=== PATIENT | male | born 1955 | race Caucasian/White ===

== ENCOUNTER → 2023-05-12 08:39 | Outpatient (BNVA) | payer MEDICARE, SELFPAY | PROVIDERS: PCP Internal Medicine; Referring Provider Internal Medicine; Visit Provider Surgery | DX: Z12.11 Encounter for screening for malignant neoplasm of colon (principal) ==

== ENCOUNTER 2023-05-14 10:53 | Day surgery (SDC) | payer MEDICARE, SELFPAY ==
--- NOTE | 2023-05-13 22:03 | W.PM.DSUDISC ---
Date of service: 05/14/23 Time of Service: 14:05 Discharge Plan Disposition Patient Disposition: Home Condition: Good Discharge Details Reason For Visit: Colonoscopy Attending Provider: Xavier Ngo Primary Care Provider: Regina Dueñas Home Meds and New Rx's Prescriptions: Continued levothyroxine 75 mcg capsule 75 mcg PO DAILY metoprolol succinate 50 mg tablet extended release 24 hr 50 mg PO DAILY atorvastatin 40 mg tablet 40 mg PO DAILY ferrous sulfate [FeroSul] 325 mg (65 mg iron) tablet 325 mg PO DAILY tamsulosin 0.4 mg capsule 0.4 mg PO DAILY losartan 100 mg tablet 100 mg PO DAILY ezetimibe [Zetia] 10 mg tablet 10 mg PO DAILY pantoprazole 40 mg tablet,delayed release (DR/EC) 40 mg PO DAILY magnesium 250 mg tablet 250 mg PO DAILY Bioflex 137-38-49-40 mg tablet PO aspirin 81 mg tablet,delayed release (DR/EC) 81 mg PO DAILY vitamin E (dl, acetate) 180 mg (400 unit) capsule 180 mg PO DAILY multivitamin Tablet 1 tab PO DAILY Discontinued polyethylene glycol 3350 17 gram/dose powder 238 g PO ONCE Qty: 238 0RF Rx Instructions: take per colonoscopy instructions bisacodyl [Dulcolax (bisacodyl)] 5 mg tablet,delayed release (DR/EC) 5 mg PO ONCE Qty: 4 0RF Rx Instructions: take per colonoscopy instructions Discharge Instructions Instructions: Diverticulosis (GEN), Diverticulosis Diet (GEN) Additional Instructions: Sunny, we were able to complete your colonoscopy today without any problems. You have some mild diverticulosis. Diverticula are weak spots in the colon wall that most patients accumulate with age. It is extremely common. I have attached some general information here regarding diverticulosis and its management. Otherwise, I did not see any signs of polyps, tumors, or anything worrisome. You should consider another colonoscopy in 10 years to minimize your chances of dying from colon cancer over the course of your lifetime. 1. If tolerated, consume a soft, low fiber diet for 1-2 days. 2[address] Do not drive, drink alcohol, operate machinery, make critical decisions, or do activities that require coordination or balance for 24 hours. 3. Because air was put into your colon during the procedure, expelling air from your rectum (passing gas or farting) is normal. 4. You may not have a bowel movement for 1-3 days because of the colonoscopy prep. This is normal. 5. Go directly to the emergency room if you notice any of the following: Develop chills (warm to touch), or if you have a thermometer and your temperature is above 101 Difficulty breathing or difficultly swallowing Persistent vomiting Severe abdominal pain, other than gas cramps Severe chest pain Black, tarry stools Any bleeding ? exceeding one tablespoon 6. Call your physician if the site where your intravenous was started becomes red, swollen, painful, and warm to touch. 7. Your physician has reviewed your pre-procedure medications. Please continue to take those medications as previously ordered. You will be given specific information/education regarding any changes to your medications before leaving. Activity:: Activity as Tolerated Diet:: As Tolerated Discharge Orders Discharge Orders: Discharge Order (Routine); Ordered 05/13/23 Ordered By: Xavier Ngo DS: Diagnosis Discharge Diagnosis (1) Screen for colon cancer: Status: Acute Asessment and Plan: Negative screening colonoscopy; consider another one in 10 years
--- NOTE | 2023-05-13 22:05 | COLE_ITS ---
Date of service: 05/14/23 Time of Service: 14:06 Colonoscopy Report Date of procedure: 05/14/23 Pre-op diagnosis general: Screening colonoscopy Post-op diagnosis procedure note: other (Diverticulosis) Procedure: Colonoscopy Surgeon: Xavier Ngo Anesthesia Type: General:No Airway Estimated blood loss (mL): 0 Pathology: none sent Complications: None Disposition: same day Indications: Sunny is a 68-year-old male who needs another screening colonoscopy Prep: Miralax/Dulcolax Procedure Start Time: 13:38 Procedure End Time: 13:56 Retraction Time: 11 Findings: sigmoid diverticulosis Procedure Description: After the induction of monitored anesthetic care, and with the patient in left lateral decubitus position, I began by performing an external anorectal exam.? Perineum and skin were normal, as was the anal verge.? There was no evidence of external hemorrhoids.? Next, I performed a digital rectal exam.? I did not appreciate any abnormal findings.? Next, I advanced a colonoscope into the rectal vault.? I performed retroflexion.? This appeared normal.? Using insufflation, I then advanced the colonoscope beyond the rectal folds and into the sigmoid colon before advancing towards the cecum.? The quality of the prep w as excellent.? There was some sigmoid diverticulosis. The scope was noted to be in the cecum by identification of the ileocecal valve and appendiceal orifice.? I then began withdrawing the colonoscope using repeated irrigation as necessary for full evaluation of the colonic mucosa. ?Once the scope was withdrawn to the level of the rectum, great care was taken to examine portions of the rectal fol ds.? Finally, the scope was withdrawn and the patient was brought to the same- day surgery recovery unit as the anesthetic wore off. ?The findings and instructions were shared with the patient prior to discharge.
[2023-05-14 10:56] VITALS: BP 112/71; PULSE 87; RESP 18; TEMP 36.2; O2SAT 96
[2023-05-14] MEDS: Lactated Ringers 1,000 ML 80 ML IV (11:34)
--- NOTE | 2023-05-14 12:00 | W.ANESPRE ---
General Info Date of Service Date Performed: 05/14/23 Height: 6 ft Weight: 94.6 kg Body Mass Index (BMI): 28.3 Surgical Procedure: Operation Date: 05/14/23 12:50 Proposed Procedure Side Surgeon erinn Ngo MD Meds Allergies and Home Medications Allergies Allergy/AdvReac Type Severity Reaction Status Date / Time No Known Drug Allergies Allergy Unknown Verified 05/14/23 11:06 Home Medication Medication Instructions Recorded aspirin 81 mg tablet,delayed 81 mg PO DAILY 05/12/23 release atorvastatin 40 mg tablet 40 mg PO DAILY 05/12/23 ezetimibe 10 mg tablet (Zetia) 10 mg PO DAILY 05/12/23 ferrous sulfate 325 mg (65 mg 325 mg PO DAILY 05/12/23 iron) tablet (FeroSul) levothyroxine 75 mcg capsule 75 mcg PO DAILY 05/12/23 losartan 100 mg tablet 100 mg PO DAILY 05/12/23 magnesium 250 mg tablet 250 mg PO DAILY 05/12/23 metoprolol succinate 50 mg 50 mg PO DAILY 05/12/23 tablet,extended release 24 hr multivitamin 1 tab PO DAILY 05/12/23 pantoprazole 40 mg tablet,delayed 40 mg PO DAILY 05/12/23 release tamsulosin 0.4 mg capsule 0.4 mg PO DAILY 05/12/23 vit tab PO 05/12/23 H-[id number]-[id number] 500 mg-50 mg-25 mg-40 mg tablet (Bioflex) vitamin E (dl, acetate) 180 mg 180 mg PO DAILY 05/12/23 (400 unit) capsule Current Visit Medications: Current Medications Generic Name Dose Route Start Last Admin Trade Name Suzanne PRN Reason Stop Dose Admin Hyoscyamine Sulfate 0.125 mg 05/13/23 22:06 Hyoscyamine 0.125 Mg Sl/Oral/Chew SL 06/12/23 22:05 DIRECTED PRN Ringer's Solution 1,000 mls @ 80 mls/hr 05/14/23 06:00 05/14/23 11:34 IV 06/12/23 23:59 80 mls/hr INFUSION REX Administration IV Miscellaneous Supplies 1 each 05/14/23 06:00 Iv Access IV 06/12/23 23:59 DIRECTED REX Ondansetron HCl 4 mg 05/13/23 22:06 Ondansetron 4 Mg/2 Ml Vial IVP 06/12/23 22:05 Q4H PRN PRN Nausea / Vomiting Sodium Chloride 0 ml 05/14/23 06:00 Normal Saline Flush 10 Ml Syr IV 06/12/23 23:59 PRN PRN Sodium Chloride 0 ml 05/14/23 06:00 Normal Saline 10 Ml Vial IJ 06/12/23 23:59 DIRECTED PRN Sterile Water 0 ml 05/14/23 06:00 Water,Injection,Sterile 10 Ml Vial IJ 06/12/23 23:59 DIRECTED PRN PFSH Active Problems Active Problems: Problem Status Onset Code Screen for colon cancer Z12.11 Cardiovascular disease I25.10 GERD (gastroesophageal reflux disease) K21.9 Medical History Medical History BPH (benign prostatic hyperplasia) Essential hypertension Heart disease History of heart attack Hyperlipidemia Hypothyroidism Periodic limb movement disorder Surgical History Surgical History History of heart artery stent 2 stents- followed by Dr. Mendez S/P colonoscopy (~2010) [place] Tobacco Smoking/Tobacco Use Status: Never Alcohol Alcohol Intake: current Alcohol intake frequency: a few times a week Alcohol type: beer Substance Use Substance use: Never Substance use type: does not use Vital Signs and Lab Results Vital Signs Most Recent Vital Signs in EMR: Most Recent Vital Signs Temp Pulse Resp BP Pulse Ox 36.2 C L 87 18 112/71 96 05/14/23 10:56 05/14/23 10:56 05/14/23 10:56 05/14/23 10:56 05/14/23 10:56 Lab Results Blood Type / Crossmatch: No Data to Display Complete Blood Count: No Data to Display Complete Metabolic Panel: No Data to Display Liver Function Panel: No Data to Display Coagulation Panel: No Data to Display Cardiac Panel: No Data to Display Arterial Blood Gas: No Data to Display Venous Blood Gas: No Data to Display Pancreas Panel: No Data to Display Thyroid Panel: No Data to Display Infectious Disease: No Data to Display Blood Cultures: No Data to Display Toxicology Panel: No Data to Display Anesthesia Assessment and Plan Anesthesia History Personal History: No History of Anesthesia Complications Family History: No Family History of Anesthesia Complications Exercise Tolerance Exercise Tolerance: Metabolic Equivalents>4 Cardiac & Pulmonary Exam Cardiac Exam: Normal S1/S2 Heart Sounds Pulmonary Exam: Clear Bilateral Breath Sounds Implantable Cardiac Device Does patient have a Pacemaker or an ICD?: No Airway Exam Known Difficult Airway: No Mallampati Class: 1 Mouth Opening: Normal (> 3cm) Thyromental Distance: Greater than 3 cm Neck Range of Motion: Full ROM Neck Circumference: Normal Teeth Condition: Normal Dentition ASA Classification ASA Score: ASA 3 Emergency Case?: No NPO Status NPO Status: NPO Clears >2 hours, Solids >8 hours Anesthesia Plan Resuscitation Status: Full Code Anesthesia Technique: General Anesthesia Airway Planned: Natural Airway Monitors Used: Standard Monitors Preoperative Comments:: 68 yo male for colo. Sig PMHx: CAD (stents x 2, 3 years ago), HTN, hypothyroid, never smoker, occ EtOH.
[2023-05-14 12:04] VITALS: BMI 28.3
--- NOTE | 2023-05-14 12:08 | W.ANESPRE ---
General Info Date of Service Date Performed: 05/14/23 Height: 6 ft Weight: 94.6 kg Body Mass Index (BMI): 28.3 Surgical Procedure: Operation Date: 05/14/23 12:50 Proposed Procedure Side Surgeon erinn Ngo MD Meds Allergies and Home Medications Allergies Allergy/AdvReac Type Severity Reaction Status Date / Time No Known Drug Allergies Allergy Unknown Verified 05/14/23 11:06 Home Medication Medication Instructions Recorded aspirin 81 mg tablet,delayed 81 mg PO DAILY 05/12/23 release atorvastatin 40 mg tablet 40 mg PO DAILY 05/12/23 ezetimibe 10 mg tablet (Zetia) 10 mg PO DAILY 05/12/23 ferrous sulfate 325 mg (65 mg 325 mg PO DAILY 05/12/23 iron) tablet (FeroSul) levothyroxine 75 mcg capsule 75 mcg PO DAILY 05/12/23 losartan 100 mg tablet 100 mg PO DAILY 05/12/23 magnesium 250 mg tablet 250 mg PO DAILY 05/12/23 metoprolol succinate 50 mg 50 mg PO DAILY 05/12/23 tablet,extended release 24 hr multivitamin 1 tab PO DAILY 05/12/23 pantoprazole 40 mg tablet,delayed 40 mg PO DAILY 05/12/23 release tamsulosin 0.4 mg capsule 0.4 mg PO DAILY 05/12/23 vit tab PO 05/12/23 E-oiqaxsc-wovgnfqgx-rutin-[id number] 500 mg-50 mg-25 mg-40 mg tablet (Bioflex) vitamin E (dl, acetate) 180 mg 180 mg PO DAILY 05/12/23 (400 unit) capsule Current Visit Medications: Current Medications Generic Name Dose Route Start Last Admin Trade Name Suzanne PRN Reason Stop Dose Admin Hyoscyamine Sulfate 0.125 mg 05/13/23 22:06 Hyoscyamine 0.125 Mg Sl/Oral/Chew SL 06/12/23 22:05 DIRECTED PRN Ringer's Solution 1,000 mls @ 80 mls/hr 05/14/23 06:00 05/14/23 11:34 IV 06/12/23 23:59 80 mls/hr INFUSION REX Administration IV Miscellaneous Supplies 1 each 05/14/23 06:00 Iv Access IV 06/12/23 23:59 DIRECTED REX Ondansetron HCl 4 mg 05/13/23 22:06 Ondansetron 4 Mg/2 Ml Vial IVP 06/12/23 22:05 Q4H PRN PRN Nausea / Vomiting Sodium Chloride 0 ml 05/14/23 06:00 Normal Saline Flush 10 Ml Syr IV 06/12/23 23:59 PRN PRN Sodium Chloride 0 ml 05/14/23 06:00 Normal Saline 10 Ml Vial IJ 06/12/23 23:59 DIRECTED PRN Sterile Water 0 ml 05/14/23 06:00 Water,Injection,Sterile 10 Ml Vial IJ 06/12/23 23:59 DIRECTED PRN PFSH Active Problems Active Problems: Problem Status Onset Code Screen for colon cancer Z12.11 Cardiovascular disease I25.10 GERD (gastroesophageal reflux disease) K21.9 Medical History Medical History BPH (benign prostatic hyperplasia) Essential hypertension Heart disease History of heart attack Hyperlipidemia Hypothyroidism Periodic limb movement disorder Surgical History Surgical History History of heart artery stent 2 stents- followed by Dr. Mendez S/P colonoscopy (~2010) [place] Tobacco Smoking/Tobacco Use Status: Never Alcohol Alcohol Intake: current Alcohol intake frequency: a few times a week Alcohol type: beer Substance Use Substance use: Never Substance use type: does not use Vital Signs and Lab Results Vital Signs Most Recent Vital Signs in EMR: Most Recent Vital Signs Temp Pulse Resp BP Pulse Ox 36.2 C L 87 18 112/71 96 05/14/23 10:56 05/14/23 10:56 05/14/23 10:56 05/14/23 10:56 05/14/23 10:56 Lab Results Blood Type / Crossmatch: No Data to Display Complete Blood Count: No Data to Display Complete Metabolic Panel: No Data to Display Liver Function Panel: No Data to Display Coagulation Panel: No Data to Display Cardiac Panel: No Data to Display Arterial Blood Gas: No Data to Display Venous Blood Gas: No Data to Display Pancreas Panel: No Data to Display Thyroid Panel: No Data to Display Infectious Disease: No Data to Display Blood Cultures: No Data to Display Toxicology Panel: No Data to Display Anesthesia Assessment and Plan Anesthesia History Personal History: No History of Anesthesia Complications Family History: No Family History of Anesthesia Complications Implantable Cardiac Device Does patient have a Pacemaker or an ICD?: No Airway Exam Known Difficult Airway: No ASA Classification Emergency Case?: No NPO Status NPO Status: NPO Clears >2 hours, Solids >8 hours Anesthesia Plan Resuscitation Status: Full Code Anesthesia Technique: General Anesthesia Airway Planned: Natural Airway Monitors Used: Standard Monitors
[2023-05-14 14:07] VITALS: BP 110/67; PULSE 81; RESP 18; TEMP 36.6; O2SAT 95
--- NOTE | 2023-05-14 14:16 | W.ANESPOSTOP ---
Postoperative Evaluation Date, Time and Location Date Performed: 05/14/23 Time Performed: 14:16 Patient Location: Day Surgery Unit Vital Signs Most Recent Imported Vital Signs: Most Recent Vital Signs Temp Pulse Resp BP Pulse Ox 36.6 C 81 18 110/67 95 05/14/23 14:07 05/14/23 14:07 05/14/23 14:07 05/14/23 14:07 05/14/23 14:07 Pain Score Most Recent Pain Score: Most Recent Pain Score Pain Level 0 05/14/23 14:07 Assessment Mental Status: Awake (Alert & Oriented to Patient Baseline) Airway and Respiratory Function: Patent airway with normal (patient baseline) respiratory exam Cardiovascular Function: Hemodynamically Stable Hydration Status: Adequately Hydrated Nausea & Vomiting: No Nausea or Vomiting Pain: Pt. Denies Any Pain Peripheral Nerve Block: Patient did not receive a nerve block
[2023-05-14 14:29] VITALS: BP 134/92; PULSE 85; RESP 18; TEMP 36.6; O2SAT 99
== END 2023-05-14 14:39 | disposition home or self-care (01) ==
PROVIDERS: PCP Internal Medicine; Visit Provider Surgery
PROC: 0DJD8ZZ Inspection of Lower Intestinal Tract, Via Natural or Artificial Opening Endoscopic (ICD-10-PCS; CPT 45378; principal; 2023-05-14 12:45)
DX: Z12.11 Encounter for screening for malignant neoplasm of colon (principal); K57.30 Diverticulosis of large intestine without perforation or abscess without bleeding; I10 Essential (primary) hypertension; E78.5 Hyperlipidemia, unspecified
CPT/HCPCS: G0121

== ENCOUNTER → 2024-08-15 15:02 | Outpatient (BNVA) | payer MEDICARE, SELFPAY | PROVIDERS: PCP Internal Medicine; Referring Provider Internal Medicine; Visit Provider Surgery | DX: K21.9 Gastro-esophageal reflux disease without esophagitis (principal) | CPT/HCPCS: 99214 ==

== ENCOUNTER 2024-08-26 09:05 | Day surgery (SDC) | payer MEDICARE, SELFPAY ==
[2024-08-26] VITALS (15 sets, daily range): BP systolic 88–134; BP diastolic 65–91; PULSE 60–71; RESP 9–18; TEMP 36.4–36.6; O2SAT 96–99; BMI 29.2
--- NOTE | 2024-08-26 10:07 | W.ANESPRE ---
General Info Date of Service Date Performed: 08/26/24 Height: 6 ft Weight: 97.8 kg Body Mass Index (BMI): 29.2 Surgical Procedure: Operation Date: 08/26/24 09:50 Proposed Procedure Side Surgeon p Gastroscopy Dinora Gibson DO Meds Allergies and Home Medications Allergies Allergy/AdvReac Type Severity Reaction Status Date / Time No Known Drug Allergies Allergy Unknown Other (See Verified 08/26/24 09:50 Comment) Home Medication ?Medication ?Instructions ?Recorded aspirin 81 mg tablet,delayed 81 mg PO DAILY 05/12/23 release atorvastatin 40 mg tablet 40 mg PO DAILY 05/12/23 ezetimibe 10 mg tablet (Zetia) 10 mg PO DAILY 05/12/23 ferrous sulfate 325 mg (65 mg 325 mg PO DAILY 05/12/23 iron) tablet (FeroSul) levothyroxine 75 mcg capsule 75 mcg PO DAILY 05/12/23 losartan 100 mg tablet 100 mg PO DAILY 05/12/23 magnesium 250 mg tablet 250 mg PO DAILY 05/12/23 multivitamin 1 tab PO DAILY 05/12/23 pantoprazole 40 mg tablet,delayed 40 mg PO DAILY 05/12/23 release tamsulosin 0.4 mg capsule 0.4 mg PO DAILY 05/12/23 vit 1 tab PO DAILY 05/12/23 O-iilphyp-mhvfhnjkk-rutin-[id number] 500 mg-50 mg-25 mg-40 mg tablet (Bioflex) vitamin E (dl, acetate) 180 mg 180 mg PO DAILY 05/12/23 (400 unit) capsule bisoprolol fumarate 5 mg tablet 2.5 mg PO DAILY 08/15/24 Current Visit Medications: Current Medications Generic Name Dose Route Start Last Admin Trade Name Freq PRN Reason Stop Dose Admin Hyoscyamine Sulfate 0.125 mg 08/26/24 00:01 Hyoscyamine 0.125 Mg Sl/Oral/Chew SL 09/25/24 00:00 DIRECTED PRN Sodium Chloride 1,000 mls @ 30 mls/hr 08/26/24 09:40 Saline 1000ml Bag IV 09/25/24 09:39 INFUSION REX IV Miscellaneous Supplies 1 each 08/26/24 06:00 Iv Access IV 09/24/24 23:59 DIRECTED REX Ondansetron HCl 4 mg 08/26/24 00:01 Ondansetron 4 Mg/2 Ml Vial IVP 09/25/24 00:00 Q4H PRN PRN Nausea / Vomiting Sodium Chloride 0 ml 08/26/24 06:00 Normal Saline Flush 10 Ml Syr IV 09/24/24 23:59 PRN PRN Sodium Chloride 0 ml 08/26/24 06:00 Normal Saline 10 Ml Vial IJ 09/24/24 23:59 DIRECTED PRN Sterile Water 0 ml 08/26/24 06:00 Water,Injection,Sterile 10 Ml Vial IJ 09/24/24 23:59 DIRECTED PRN PFSH Active Problems Active Problems: Problem Status Onset Code Screen for colon cancer Acute Z12.11 Cardiovascular disease Acute I25.10 GERD (gastroesophageal reflux disease) Chronic K21.9 Medical History Medical History Hyperlipidemia Hypothyroidism History of heart attack 2020 Periodic limb movement disorder Essential hypertension Heart disease BPH (benign prostatic hyperplasia) Surgical History Surgical History Hx of total shoulder replacement S/P colonoscopy (~05/14/23) [place] 2010 History of heart artery stent 2 stents- followed by Dr. Mendez. F/U 03/2024 Tobacco Smoking/Tobacco Use Status: Never Alcohol Alcohol Intake: current Alcohol intake frequency: a few times a week Alcohol type: beer Substance Use Substance use: Never Substance use type: does not use Details: alcohol: t-3, one beer Vital Signs and Lab Results Vital Signs Most Recent Vital Signs in EMR: Most Recent Vital Signs Temp Pulse Resp BP Pulse Ox 36.5 C 71 16 134/86 99 08/26/24 09:37 08/26/24 09:37 08/26/24 09:37 08/26/24 09:37 08/26/24 09:37 Lab Results Blood Type / Crossmatch: No Data to Display Complete Blood Count: No Data to Display Complete Metabolic Panel: No Data to Display Liver Function Panel: No Data to Display Coagulation Panel: No Data to Display Cardiac Panel: No Data to Display Arterial Blood Gas: No Data to Display Venous Blood Gas: No Data to Display Pancreas Panel: No Data to Display Thyroid Panel: No Data to Display Infectious Disease: No Data to Display Blood Cultures: No Data to Display Toxicology Panel: No Data to Display Anesthesia Assessment and Plan Anesthesia History Personal History: No History of Anesthesia Complications Family History: No Family History of Anesthesia Complications Exercise Tolerance Exercise Tolerance: Metabolic Equivalents>4 Pertinent Negatives Pertinent Negatives: No Major Cardiovascular Symptoms or Complaints and No Major Pulmonary Symptoms or Complaints Cardiac & Pulmonary Exam Cardiac Exam: Normal S1/S2 Heart Sounds Pulmonary Exam: Clear Bilateral Breath Sounds Implantable Cardiac Device Does patient have a Pacemaker or an ICD?: No Airway Exam Known Difficult Airway: No Mallampati Class: 1 Mouth Opening: Normal (> 3cm) Thyromental Distance: Greater than 3 cm Neck Range of Motion: Full ROM Neck Circumference: Normal Teeth Condition: Normal Dentition ASA Classification ASA Score: ASA 2 Emergency Case?: No NPO Status NPO Status: NPO Clears >2 hours, Solids >8 hours Anesthesia Plan Resuscitation Status: Full Code Anesthesia Technique: General Anesthesia Airway Planned: Natural Airway Monitors Used: Standard Monitors
[2024-08-26] MEDS: Normal Saline 1,000 ML 30 ML IV (10:18)
--- NOTE | 2024-08-26 10:53 | STOM_PTH ---
PATIENT: Sunny Rascon LOC: [facility] U#:[id number] AGE/SX: 69/M ROOM: RE08/26/[address]: Dinora Gibson : 1955 BED: DIS: 08/26/2024 SPEC #: [id number] RECD: 08/26/24 11:44 STATUS: JOELLE REDonaldo #: [id number] SAMEERA: 08/26/24 10:[address]: Dinora Gibson DEPT: Surgical Specimen RECD BY: Hoa Ashby ENTERED: 08/26/24 11:46 SP TYPE: STOMACH OTHR DR: Regina Dueñas Tissues: 1 - BIOPSY BOWEL 2 - BIOPSY BOWEL 3 - STOMACH BIOPSY 4 - STOMACH BIOPSY 5 - ESOPHAGUS BIOPSY 6 - ESOPHAGUS BIOPSY Procedures: GROSS AND MICRO LEVEL 4 Comments: [id number]
--- NOTE | 2024-08-26 11:27 | W.PM.ENDDOP ---
Date of service: 08/26/24 Time of Service: 12:16 Endoscopy Report DATE OF PROCEDURE: 08/26/24 PRE-OP DIAGNOSIS: breakthrough gerd symtoms POST-OP DIAGNOSIS: other (bile reflux gastritis/esophagitis ) SURGEON: Dinora Gibson ANESTHESIA TYPE: General:No Airway ESTIMATED BLOOD LOSS: 2 PATHOLOGY: other COMPLICATIONS: None DISPOSITION: PACU PROCEDURE DESCRIPTION: Informed consent was obtained from the pt; explaining the benefits and Risks: bleeding, infections, perforations {which could require surgery or antibiotics and prolonged hospital stay}, or ostomy, and complications of anaesthesia, evens aspiration). The patient was take to the procedure room and placed in a supine position. Monitors were applied and a time out was done. The patients name, date of , procedure type, allergies to medications and metal in their body was reviewed. A bite block was placed and the patient was sedated. Once sedated and comfortable an Olympus gastroscope (see RN notes for scope #) was advanced through the oropharynx which was grossly normal, and passed into the esophagus. The proximal and mid-esophagus were normal. The distal esophagus does not show any: dilation/strictures/varices/erosions or ulcers/bleeding noted. There is mild esophagitis present. The scope was advanced into the stomach and through the pylorus into the proximal jejunum. A bx is taken for celiac Dx. The duodenum was noted to be normal. Biopsies were done of the duodenal bulb.. The scope was retracted back into the stomach and biopsies were taken of the antrum. Upon entering the stomach, there was gross bile was noted. There is some mild gastritis in the distal 1/3 of the stomach: radiating from the antrum in a striped fsahion. there was no gastropathy/ ulcers/masses noted. The scope was retroflexed. The cardia and fundus were noted to be normal. There is no hiatal hernia noted. The scope was retracted back into the esophagus and biopsies were done of the GE junction (in all 4 quadrants) and distal esophagus (2cm above the GE junction) to rule out Newberry's. All specimens are retrieved and no bleeding was noted. The Z line was irregular. The scope was removed and the patient was woken up and taken back to [facility] in stable condition.
--- NOTE | 2024-08-26 11:57 | W.ANESPOSTOP ---
Postoperative Evaluation Date, Time and Location Date Performed: 08/26/24 Time Performed: 11:25 Patient Location: PACU Vital Signs Most Recent Imported Vital Signs: Most Recent Vital Signs Temp Pulse Resp BP Pulse Ox 36.4 C L 65 18 114/91 H 98 08/26/24 11:36 08/26/24 11:36 08/26/24 11:36 08/26/24 11:36 08/26/24 11:36 Pain Score Most Recent Pain Score: Most Recent Pain Score Pain Level 0 08/26/24 11:36 Assessment Mental Status: Awake (Alert & Oriented to Patient Baseline) Airway and Respiratory Function: Patent airway with normal (patient baseline) respiratory exam Cardiovascular Function: Hemodynamically Stable Hydration Status: Adequately Hydrated Nausea & Vomiting: No Nausea or Vomiting Pain: Pt. Denies Any Pain Peripheral Nerve Block: Patient did not receive a nerve block
--- NOTE | 2024-08-26 12:18 | PDOC.DSDIS_ITS ---
Date of service: 08/26/24 Discharge Plan Disposition Patient Disposition: Home Condition: Good Discharge Details Reason For Visit: stomach scope Attending Provider: Dinora Gibson Primary Care Provider: Regina Dueñas Home Meds and New Rx's Prescriptions: New sucralfate [Carafate] 1 gram tablet 1 g PO BID Qty: 60 12RF lansoprazole [Prevacid] 30 mg capsule,delayed release(DR/EC) 30 mg PO DAILY Qty: 30 12RF Continued levothyroxine 75 mcg capsule 75 mcg PO DAILY atorvastatin 40 mg tablet 40 mg PO DAILY Patient Comments: PT. REPORTS DOSE IS 60 MG ferrous sulfate [FeroSul] 325 mg (65 mg iron) tablet 325 mg PO DAILY tamsulosin 0.4 mg capsule 0.4 mg PO DAILY losartan 100 mg tablet 100 mg PO DAILY ezetimibe [Zetia] 10 mg tablet 10 mg PO DAILY pantoprazole 40 mg tablet,delayed release (DR/EC) 40 mg PO DAILY magnesium 250 mg tablet 250 mg PO DAILY Bioflex [id number] mg tablet 1 tab PO DAILY aspirin 81 mg tablet,delayed release (DR/EC) 81 mg PO DAILY vitamin E (dl, acetate) 180 mg (400 unit) capsule 180 mg PO DAILY multivitamin Tablet 1 tab PO DAILY bisoprolol fumarate 5 mg tablet 2.5 mg PO DAILY Discharge Instructions Additional Instructions: Post EGD Instruction ?You had anesthesia for your EGD/stomach scope today.? For your safety, please do the following for the next twenty-four (24) hours: Do Not operate a motor vehicle (car, truck, motorcycle, etc.) Do Not drink alcoholic beverages or use any recreational drugs for the first 24 hours or while taking pain medications. The medications in your body may have a reaction that can be dangerous. Do Not make any important decisions or sign any important papers You have just had a gastroscopy (EGD) or upper GI tract examination. It is important for your smooth recovery that you carefully follow the recommendations below. Do not hesitate to call if any questions should arise about your anesthesia, condition, or care. -Symptoms you may experience during the next 24 hours: ?1. Mild abdominal pain or excessive gas or a bloated feeling which improves with rest, liquids, eating? slightly, and walking as tolerated. 2. Drowsiness and/or forgetfulness because of the medications you were given. 3. A sore throat which you can treat with throat lozenges or by gargling with salt water 4-5 times a day. 4. Redness at the site of your IV which you can treat with warm compresses. SPECIAL INSTRUCTIONS: 1. You may resume your previous diet in one hour. We recommend a light meal to start, then progress as tolerated. 2. Restart regular medications in one hour. 3. No aspirin or non-steroidal containing medication for 24 hrs. 4. No lifting over 20 pounds or strenuous activity for the first 24 hours after your procedure. After 24 hours there are no restrictions on your activity, but you may feel fatigued for a few days. -Findings: Bile reflux gastritis and esophagitis -Medications: add in Carafate twice daily and change PPI to prevacid -Continue to follow lifestyle modifications: No alcohol, tobacco products, Aspirin or NSAID's (ibuprofen, Motrin, Naprosyn, aleve, etc).? Try to limit/avoid:? soda pop/any carbonated beverages, caffeine (including tea & chocolate), and acidic foods, (tomatoes, citrus, onions, peppermints) spicy or fried/fatty foods. Do not lie down for 30 minutes after eating, and do not eat 2 hours prior to bedtime. Avoid wearing tight fitting clothing/ belts. Follow up: 09/26 @ 10:30 Call the office at [phone] (Office) or [phone] (Hospital), or go to the ER right away if you notice any of the followin. Vomiting blood and /or ?coffee ground? material. ?2. Worsening of abdominal pain or cramping. ?3. Trouble with breathing, cough, and/or fever (temperature above 101.5 F). 4. Increasing pain with swallowing. ?5. Chest pain. 6. Any new symptoms. 7. Worsening of the redness at the IV site Stand Alone Forms: Myra Villasenor ([facility]) Activity:: see above Diet:: see above Discharge Orders Discharge Orders: Discharge Order (Routine); Ordered 08/26/24 Ordered By: Dniora Gibson DS: Diagnosis Discharge Diagnosis (1) Bile reflux gastritis: Status: Acute (2) GERD (gastroesophageal reflux disease): Status: Chronic Asessment and Plan: Patient is seen and examined after they are endoscopy.? Patient has minimal sore throat.? They have been able to tolerate liquids.? They do not have any nausea vomiting.? They are not having any chest pain or shortness of breath.? They have been able to pass gas and are not having any abdominal pain or distention.? They have not vomited any blood.? The vital signs have been stable-see nursing notes. We discussed findings on their endoscopy. We reviewed the importance of lifestyle modification-see discharge instructions We reviewed any new medications that the patient may be prescribed-see discharge instructions Patient will either be sent a letter with the biopsy results or follow-up in the office-see discharge instructions. Patient was given explicit instructions to follow-up regarding post endoscopy- refer to discharge Patient verbalized understanding and discharged in stable and satisfactory condition.? See nursing notes. (3) Essential hypertension: (4) BPH (benign prostatic hyperplasia): (5) Hypothyroidism: (6) Heart disease: (7) Hyperlipidemia:
== END 2024-08-26 13:20 | disposition home or self-care (01) ==
PROVIDERS: PCP Internal Medicine; Visit Provider Surgery
PROC: 0DJ68ZZ Inspection of Stomach, Via Natural or Artificial Opening Endoscopic (ICD-10-PCS; CPT 43235; principal; 2024-08-26 09:45)
DX: K21.9 Gastro-esophageal reflux disease without esophagitis (principal); K29.60 Other gastritis without bleeding; K31.89 Other diseases of stomach and duodenum; K31.A0 Gastric intestinal metaplasia, unspecified
CPT/HCPCS: 43239; 88305; J2003; J2371; J2704

== ENCOUNTER → 2024-09-26 10:25 | Outpatient (BNVA) | payer MEDICARE, SELFPAY | PROVIDERS: PCP Internal Medicine; Referring Provider Internal Medicine; Visit Provider Surgery | DX: K21.9 Gastro-esophageal reflux disease without esophagitis (principal); K29.60 Other gastritis without bleeding; I25.2 Old myocardial infarction; K22.70 Barrett's esophagus without dysplasia | CPT/HCPCS: 99213 ==

== ENCOUNTER → 2024-12-22 12:58 | Outpatient (BNVA) | payer MEDICARE, SELFPAY | PROVIDERS: PCP Internal Medicine; Referring Provider Internal Medicine; Visit Provider Student in an Organized Health Care Education/Training Program | DX: K22.70 Barrett's esophagus without dysplasia (principal) | CPT/HCPCS: 99214 ==

== ENCOUNTER 2025-02-08 09:22 | Outpatient (REF) | payer MEDICARE, SELFPAY ==
--- NOTE | 2025-02-08 08:32 | SKI_PTH ---
PATIENT: Sunny Rascon LOC: [facility] U#:[id number] AGE/SX: 69/M ROOM: RE02/08/[address]: Kash Clay MD : [id number] BED: DIS: 02/08/2025 SPEC #: [id number] RECD: 02/08/25 17:10 STATUS: JOELLE REDonaldo #: [id number] SAMEERA: 02/08/25 08:[address]: Kash Clay DEPT: Surgical Specimen RECD BY: Hoa Ashby ENTERED: 02/08/25 17:10 SP TYPE: ARCHANA OCHOA DR: Regina Dueñas Tissues: 1 - SKIN BIOPSY(SHAVE/PUNCH) Procedures: GROSS AND MICRO LEVEL 4 Comments: [id number]
== END 2025-02-08 09:23 | disposition home or self-care (01) ==
LOC: LBN 09:22
PROVIDERS: PCP Internal Medicine; Visit Provider Otolaryngology
DX: K13.21 Leukoplakia of oral mucosa, including tongue (principal)
CPT/HCPCS: 88305